=== PATIENT | male | born 1965 | race Two or more races ===

== ENCOUNTER 2016-11-27 11:46 | Inpatient (IN) | payer MEDICARE, MEDICAID ==
[~2016-11-27] VITALS: Ht 165.1 cm; Wt 73.7 kg
[~2016-11-27 11:46] MED LIST: BENZ1TAB10 PO; BUSP15 PO; GABA-531 PO; PANT40TA25 PO; RISP4 PO
[2016-11-27] MEDS ORDERED: DiphenhydrAMINE HCL 50 MG/ML VIAL IM ONE (12:15)
[2016-11-27] MEDS ORDERED: LORazepam 2 MG/ML VIAL IM ONE (12:15)
[2016-11-27] MEDS ORDERED: ZOLPIDEM TARTRATE 10 MG TABLET PO PRN (12:15)
[2016-11-27] MEDS ORDERED: INFLUENZA VIRUS VACCINE QVS 2016-17 (3YR+)/PF 60 MCG/0.5 ML SYRINGE IM ONE (12:45)
[2016-11-27] MEDS: BusPIRone HCL 15 MG TABLET PO SCH ×3 (13:00→20:29)
[2016-11-27] MEDS: GABAPENTIN 300 MG CAPSULE PO SCH ×3 (13:00→20:29)
[2016-11-27] MEDS: RisperiDONE 4 MG TABLET PO SCH (20:30)
[2016-11-28 07:03] VITALS: BP 119/63
[2016-11-28 08:13] VITALS: BP 102/59
[2016-11-28] MEDS: GABAPENTIN 300 MG CAPSULE PO SCH ×4 (10:13→21:03)
[2016-11-28] MEDS: PANTOPRAZOLE SODIUM 40 MG DR TABLET PO SCH (10:13)
[2016-11-28] MEDS: LORazepam 2 MG TABLET PO PRN (10:13)
[2016-11-28] MEDS: QUEtiapine FUMARATE 100 MG TABLET PO PRN (10:13)
[2016-11-28] MEDS: BusPIRone HCL 15 MG TABLET PO SCH ×4 (10:13→21:03)
[2016-11-28] MEDS: BENZTROPINE MESYLATE 1 MG TABLET PO SCH ×2 (10:13→17:08)
[2016-11-28 16:14] VITALS: BP 121/75
[2016-11-28] MEDS: RisperiDONE 4 MG TABLET PO SCH (21:03)
[2016-11-29 06:37] VITALS: BP 125/62
[2016-11-29 08:24] VITALS: BP 111/58
[2016-11-29] MEDS: GABAPENTIN 300 MG CAPSULE PO SCH ×4 (09:07→20:43)
[2016-11-29] MEDS: QUEtiapine FUMARATE 100 MG TABLET PO PRN (09:07)
[2016-11-29] MEDS: LORazepam 2 MG TABLET PO PRN (09:07)
[2016-11-29] MEDS: BusPIRone HCL 15 MG TABLET PO SCH ×4 (09:07→20:44)
[2016-11-29] MEDS: BENZTROPINE MESYLATE 1 MG TABLET PO SCH ×2 (09:07→17:43)
[2016-11-29] MEDS: PANTOPRAZOLE SODIUM 40 MG DR TABLET PO SCH (09:08)
[2016-11-29 16:00] VITALS: BP 118/72
[2016-11-29] MEDS: RisperiDONE 4 MG TABLET PO SCH (20:44)
[2016-11-30 06:41] VITALS: BP 110/69
[2016-11-30] MEDS: PANTOPRAZOLE SODIUM 40 MG DR TABLET PO SCH (10:01)
[2016-11-30] MEDS: BusPIRone HCL 15 MG TABLET PO SCH ×4 (10:01→21:02)
[2016-11-30] MEDS: LORazepam 2 MG TABLET PO PRN ×2 (10:01→16:04)
[2016-11-30] MEDS: BENZTROPINE MESYLATE 1 MG TABLET PO SCH ×2 (10:01→16:03)
[2016-11-30] MEDS: GABAPENTIN 300 MG CAPSULE PO SCH ×4 (10:01→21:02)
[2016-11-30 16:30] VITALS: BP 112/61
[2016-11-30] MEDS: RisperiDONE 4 MG TABLET PO SCH (21:02)
[2016-12-01 06:45] VITALS: BP 102/69
[2016-12-01 08:38] VITALS: BP 102/60
[2016-12-01] MEDS: LORazepam 2 MG TABLET PO PRN (10:08)
[2016-12-01] MEDS: BENZTROPINE MESYLATE 1 MG TABLET PO SCH ×2 (10:08→16:33)
[2016-12-01] MEDS: PANTOPRAZOLE SODIUM 40 MG DR TABLET PO SCH (10:08)
[2016-12-01] MEDS: BusPIRone HCL 15 MG TABLET PO SCH ×4 (10:08→20:54)
[2016-12-01] MEDS: GABAPENTIN 300 MG CAPSULE PO SCH ×4 (10:09→20:54)
[2016-12-01 16:21] VITALS: BP 116/73
[2016-12-01] MEDS: RisperiDONE 4 MG TABLET PO SCH (20:54)
[2016-12-02 06:48] VITALS: BP 105/68
[2016-12-02 08:14] VITALS: BP 99/63
[2016-12-02] MEDS ORDERED: PALIPERIDONE PALMITATE 234 MG/1.5 ML SYRINGE IM ONE (09:00)
[2016-12-02] MEDS: GABAPENTIN 300 MG CAPSULE PO SCH ×4 (09:54→20:38)
[2016-12-02] MEDS: TRIHEXYPHENIDYL HCL 5 MG TABLET PO SCH ×2 (09:54→16:36)
[2016-12-02] MEDS: LORazepam 2 MG TABLET PO PRN (09:54)
[2016-12-02] MEDS: BusPIRone HCL 15 MG TABLET PO SCH ×4 (09:55→20:38)
[2016-12-02] MEDS: PANTOPRAZOLE SODIUM 40 MG DR TABLET PO SCH (09:55)
[2016-12-02] MEDS: BENZTROPINE MESYLATE 1 MG TABLET PO SCH ×2 (09:55→16:37)
[2016-12-02 16:00] VITALS: BP 132/70
[2016-12-02] MEDS: RisperiDONE 4 MG TABLET PO SCH (20:38)
[2016-12-03 06:33] VITALS: BP 108/64
[2016-12-03 08:14] VITALS: BP 102/61
[2016-12-03] MEDS: BENZTROPINE MESYLATE 1 MG TABLET PO SCH ×2 (08:44→16:31)
[2016-12-03] MEDS: PANTOPRAZOLE SODIUM 40 MG DR TABLET PO SCH (08:44)
[2016-12-03] MEDS: GABAPENTIN 300 MG CAPSULE PO SCH ×4 (08:44→20:29)
[2016-12-03] MEDS: TRIHEXYPHENIDYL HCL 5 MG TABLET PO SCH ×2 (08:44→16:31)
[2016-12-03] MEDS: BusPIRone HCL 15 MG TABLET PO SCH ×4 (08:44→20:29)
[2016-12-03 16:29] VITALS: BP 111/71
[2016-12-03] MEDS: LORazepam 2 MG TABLET PO PRN (16:31)
[2016-12-03] MEDS: RisperiDONE 4 MG TABLET PO SCH (20:29)
[2016-12-04 06:43] VITALS: BP 104/67
[2016-12-04 08:45] VITALS: BP 101/62
[2016-12-04] MEDS: BusPIRone HCL 15 MG TABLET PO SCH ×4 (10:07→21:03)
[2016-12-04] MEDS: LORazepam 2 MG TABLET PO PRN ×2 (10:07→16:31)
[2016-12-04] MEDS: BENZTROPINE MESYLATE 1 MG TABLET PO SCH ×2 (10:07→16:31)
[2016-12-04] MEDS: GABAPENTIN 300 MG CAPSULE PO SCH ×4 (10:07→21:03)
[2016-12-04] MEDS: TRIHEXYPHENIDYL HCL 5 MG TABLET PO SCH ×2 (10:08→16:31)
[2016-12-04] MEDS: PANTOPRAZOLE SODIUM 40 MG DR TABLET PO SCH (10:08)
[2016-12-04 16:14] VITALS: BP 120/64
[2016-12-04] MEDS: RisperiDONE 4 MG TABLET PO SCH (21:03)
[2016-12-05 06:36] VITALS: BP 101/60
[2016-12-05 08:14] VITALS: BP 99/56
[2016-12-05] MEDS: GABAPENTIN 300 MG CAPSULE PO SCH ×4 (09:37→20:55)
[2016-12-05] MEDS: PANTOPRAZOLE SODIUM 40 MG DR TABLET PO SCH (09:37)
[2016-12-05] MEDS: TRIHEXYPHENIDYL HCL 5 MG TABLET PO SCH ×2 (09:37→17:05)
[2016-12-05] MEDS: BusPIRone HCL 15 MG TABLET PO SCH ×4 (09:37→20:55)
[2016-12-05] MEDS: BENZTROPINE MESYLATE 1 MG TABLET PO SCH ×2 (09:37→17:05)
[2016-12-05] MEDS: LORazepam 2 MG TABLET PO PRN ×2 (09:38→17:05)
[2016-12-05 16:15] VITALS: BP 116/63
[2016-12-05] MEDS: RisperiDONE 4 MG TABLET PO SCH (20:55)
[2016-12-06] MEDS: LORazepam 2 MG TABLET PO PRN ×3 (04:26→16:51)
[2016-12-06 04:29] VITALS: BP 107/61
[2016-12-06 08:14] VITALS: BP 108/58
[2016-12-06] MEDS ORDERED: PALIPERIDONE PALMITATE 156 MG/ML SYRINGE IM SCH (09:00)
[2016-12-06] MEDS ORDERED: PALIPERIDONE PALMITATE 156 MG/ML SYRINGE IM ONE (09:00)
[2016-12-06] MEDS: PANTOPRAZOLE SODIUM 40 MG DR TABLET PO SCH (10:03)
[2016-12-06] MEDS: TRIHEXYPHENIDYL HCL 5 MG TABLET PO SCH ×2 (10:04→16:51)
[2016-12-06] MEDS: BusPIRone HCL 15 MG TABLET PO SCH ×4 (10:04→20:45)
[2016-12-06] MEDS: BENZTROPINE MESYLATE 1 MG TABLET PO SCH ×2 (10:04→16:51)
[2016-12-06] MEDS: GABAPENTIN 300 MG CAPSULE PO SCH ×4 (10:04→20:45)
[2016-12-06 16:38] VITALS: BP 118/68
[2016-12-07] MEDS: LORazepam 2 MG TABLET PO PRN (01:16)
[2016-12-07 04:50] VITALS: BP 131/78
[2016-12-07 08:14] VITALS: BP 117/69
[2016-12-07] MEDS ORDERED: PALI156D IM (09:03)
[2016-12-07] MEDS ORDERED: TRIH5TAB2 PO (09:03)
[2016-12-07] MEDS: BENZTROPINE MESYLATE 1 MG TABLET PO SCH (09:05)
[2016-12-07] MEDS: BusPIRone HCL 15 MG TABLET PO SCH (09:06)
[2016-12-07] MEDS: TRIHEXYPHENIDYL HCL 5 MG TABLET PO SCH (09:06)
[2016-12-07] MEDS: PANTOPRAZOLE SODIUM 40 MG DR TABLET PO SCH (09:06)
[2016-12-07] MEDS: GABAPENTIN 300 MG CAPSULE PO SCH (09:07)
== END 2016-12-07 10:00 | disposition home or self-care (01) | DRG 885 ==
LOC: B3A 12:09
PROVIDERS: ADMIT Psychiatry & Neurology Psychiatry; ATTEND Psychiatry & Neurology Psychiatry
DX: F25.0 Schizoaffective disorder, bipolar type (principal); F15.20 Other stimulant dependence, uncomplicated; R45.851 Suicidal ideations; F12.10 Cannabis abuse, uncomplicated; F10.10 Alcohol abuse, uncomplicated; F17.210 Nicotine dependence, cigarettes, uncomplicated; K21.9 Gastro-esophageal reflux disease without esophagitis; R45.850 Homicidal ideations; G62.9 Polyneuropathy, unspecified; Z91.14 Patient's other noncompliance with medication regimen; Z98.890 Other specified postprocedural states; Z28.21 Immunization not carried out because of patient refusal

== ENCOUNTER 2019-08-17 11:29 | Inpatient (IN) | payer MEDICARE, MEDICAID ==
[~2019-08-17] VITALS: Ht 165.1 cm; Wt 72.6 kg
[~2019-08-17 11:29] MED LIST changes: +PALI156D IM; -RISP4 PO; +TRIH5TAB2 PO
[2019-08-17 12:49] LABS: BASOPHILS % (AUTO) 0.2 % (0.0-2.0); EOSINOPHILS % (AUTO) 0.3 % (1.0-6.0); HEMATOCRIT 36.5 % (41-53); HEMOGLOBIN 12.6 g/dL (13.5-17.5); LYMPHOCYTES # (AUTO) 1.4 K/uL (1.0-4.8); LYMPHOCYTES % (AUTO) 17.2 % (22.0-44.0); MEAN CORPUSCULAR HEMOGLOBIN 34.1 pg (26.0-34.0); MEAN CORPUSCULAR HGB CONC 34.4 G/dL (31.0-37.0); MEAN CORPUSCULAR VOLUME 99 fL (80-100); NEUTROPHILS # (AUTO) 5.7 K/uL (1.8-7.7); NEUTROPHILS % (AUTO) 70.3 % (40.0-70.0); PLATELET COUNT (AUTO) 256 K/uL (150-450); RED BLOOD CELL COUNT(AUTO) 3.68 MIL/uL (4.50-5.90); RED CELL DISTRIBUTION WIDTH 13.9 % (11.5-14.5)
[2019-08-17 12:58] LABS: ANION GAP 12 mmol/L (8-16); CALCIUM, TOTAL 9.4 mg/dL (8.8-10.5); CARBON DIOXIDE 27 mmol/L (22-29); CHLORIDE 112 mmol/L (98-107); CREATININE 1.17 mg/dL (0.60-1.30); GLOMERULAR FILTR. RATE CALC > 60 mL/min (>60); GLUCOSE,RANDOM 87 mg/dL (70-110); POTASSIUM 4.5 mmol/L (3.5-5.1); SODIUM SERUM 151 mmol/L (136-145); UREA NITROGEN, BLOOD 18 mg/dL (7-18)
[2019-08-17 13:04] LABS: ALANINE AMINOTRANSFERASE 51 U/L (12-78); ALBUMIN 3.5 g/dL (3.4-5.0); ALKALINE PHOSPHATASE 76 U/L (46-116); ASPARTATE AMINOTRANSFERASE 40 U/L (15-37); TOTAL PROTEIN, SERUM 6.8 g/dL (6.4-8.2)
[2019-08-17] MEDS ORDERED: PALIPERIDONE 3 MG ER TABLET PO PRN (14:45)
[2019-08-17] MEDS ORDERED: LORazepam 2 MG TABLET PO PRN (14:45)
[2019-08-17] MEDS ORDERED: PROMETHAZINE HCL 25 MG TABLET PO PRN (14:45)
[2019-08-17] MEDS ORDERED: MAGNESIUM HYDROXIDE SUSPENSION 30 ML UDCUP PO PRN (14:45)
[2019-08-17] MEDS ORDERED: ZOLPIDEM TARTRATE 10 MG TABLET PO PRN (14:45)
[2019-08-17] MEDS ORDERED: MAG HYDROX/AL HYDROX/SIMETH ES 30 ML SUSPENSION UDCUP PO PRN (14:45)
[2019-08-17] MEDS ORDERED: GuaiFENesin/D-METHORPHAN [SUGAR-FREE] 200-20MG/10 ML SYRUP UDCUP PO PRN (14:45)
[2019-08-17] MEDS ORDERED: LOPERAMIDE HCL 2 MG CAPSULE PO PRN (14:45)
[2019-08-17] MEDS ORDERED: PALIPERIDONE PALMITATE 234 MG/1.5 ML SYRINGE IM ONE (14:45)
[2019-08-17] MEDS ORDERED: TUBERCULIN, PURIFIED PROTEIN DERIVATIVE 5 TU/0.1 ML SYRINGE ID ONE (14:45)
[2019-08-17] MEDS ORDERED: HydrOXYzine PAMOATE 50 MG CAPSULE PO PRN (14:45)
[2019-08-17] MEDS ORDERED: ACETAMINOPHEN 325 MG TABLET PO PRN (14:45)
[2019-08-17 15:14] LABS: AMPHET/METH SCREEN,URINE POSITIVE (NEGATIVE); BARBITURATE SCREEN, URINE NEGATIVE (NEGATIVE); BENZODIAZEPINES SCREEN,URINE NEGATIVE (NEGATIVE); CANNABINOID SCREEN,URINE POSITIVE (NEGATIVE); COCAINE SCREEN,URINE NEGATIVE (NEGATIVE); METHADONE SCREEN, URINE NEGATIVE (NEGATIVE); OPIATE SCREEN,URINE NEGATIVE (NEGATIVE); PHENCYCLIDINE SCREEN,URINE NEGATIVE (NEGATIVE)
[2019-08-17] MEDS: THIAMINE HCL 100 MG TABLET PO SCH (20:34)
[2019-08-17 21:00] VITALS: BP 133/77
[2019-08-17] MEDS ORDERED: PALIPERIDONE 3 MG ER TABLET PO SCH (21:00)
[2019-08-18] MEDS: NALTREXONE HCL 50 MG TABLET PO SCH (08:54)
[2019-08-18] MEDS: THIAMINE HCL 100 MG TABLET PO SCH ×2 (08:54→16:44)
[2019-08-18] MEDS: MULTIVITAMINS WITH MINERALS, THERAPEUTIC TABLET PO SCH (08:54)
[2019-08-18] MEDS: FOLIC ACID 1 MG TABLET PO SCH (08:54)
[2019-08-18 10:07] VITALS: BP 113/70
[2019-08-18 17:17] VITALS: BP 135/69
[2019-08-19] MEDS: FOLIC ACID 1 MG TABLET PO SCH (08:09)
[2019-08-19] MEDS: MULTIVITAMINS WITH MINERALS, THERAPEUTIC TABLET PO SCH (08:10)
[2019-08-19] MEDS: NALTREXONE HCL 50 MG TABLET PO SCH (08:10)
[2019-08-19] MEDS: THIAMINE HCL 100 MG TABLET PO SCH ×2 (08:10→17:13)
[2019-08-19 09:09] VITALS: BP 115/67
[2019-08-19 16:00] VITALS: BP 107/62
[2019-08-20] MEDS: NALTREXONE HCL 50 MG TABLET PO SCH (09:43)
[2019-08-20] MEDS: FOLIC ACID 1 MG TABLET PO SCH (09:43)
[2019-08-20] MEDS: THIAMINE HCL 100 MG TABLET PO SCH ×2 (09:43→16:30)
[2019-08-20] MEDS: MULTIVITAMINS WITH MINERALS, THERAPEUTIC TABLET PO SCH (09:43)
[2019-08-20 09:59] VITALS: BP 102/73
[2019-08-20] MEDS ORDERED: NALT50TA PO (17:02)
[2019-08-20] MEDS ORDERED: PALI117D IM (17:02)
[2019-08-20 21:24] VITALS: BP 101/69
[2019-08-21 00:54] VITALS: BP 120/85
[2019-08-21] MEDS: MULTIVITAMINS WITH MINERALS, THERAPEUTIC TABLET PO SCH (08:00)
[2019-08-21] MEDS: NALTREXONE HCL 50 MG TABLET PO SCH (08:00)
[2019-08-21] MEDS: FOLIC ACID 1 MG TABLET PO SCH (08:00)
[2019-08-21] MEDS: THIAMINE HCL 100 MG TABLET PO SCH (08:00)
[2019-08-21] MEDS ORDERED: PALIPERIDONE PALMITATE 156 MG/ML SYRINGE IM ONE (09:00)
[2019-08-21 10:06] VITALS: BP 131/67
== END 2019-08-21 13:45 | disposition home or self-care (01) | DRG 885 ==
LOC: EMS 11:31 → 3EX 16:51
PROVIDERS: ADMIT Psychiatry & Neurology Psychiatry; ATTEND Psychiatry & Neurology Psychiatry
DX: F20.0 Paranoid schizophrenia (principal); F15.10 Other stimulant abuse, uncomplicated; F17.210 Nicotine dependence, cigarettes, uncomplicated; F43.10 Post-traumatic stress disorder, unspecified; K21.9 Gastro-esophageal reflux disease without esophagitis; F12.90 Cannabis use, unspecified, uncomplicated; Z91.19 Patient's noncompliance with other medical treatment and regimen; Z91.14 Patient's other noncompliance with medication regimen; Z79.899 Other long term (current) drug therapy
CPT/HCPCS: 93005; 99406; G0378; G0480

== ENCOUNTER 2022-06-08 12:27 | Emergency (ER) | payer MEDICARE, MEDICAID ==
[~2022-06-08] VITALS: Ht 165.1 cm; Wt 72.7 kg
[~2022-06-08 12:27] MED LIST changes: -BENZ1TAB10 PO; -BUSP15 PO; -GABA-531 PO; +NALT50TA PO; +OLAN5TAB30 PO; -PALI156D IM; -PANT40TA25 PO; -TRIH5TAB2 PO
[2022-06-08] MEDS ORDERED: DiphenhydrAMINE HCL 50 MG/ML VIAL IM ONE (13:30)
[2022-06-08] MEDS ORDERED: LORazepam 2 MG/ML VIAL IM ONE (13:30)
[2022-06-08] MEDS ORDERED: HALOPERIDOL LACTATE 5 MG/ML VIAL IM ONE (13:30)
[2022-06-08 14:40] LABS: COVID AG,FIA SOURCE NASAL SWAB
[2022-06-08 16:30] VITALS: BP 121/90
== END 2022-06-08 17:36 | disposition home or self-care (01) ==
LOC: EMS 12:29
DX: F15.10 Other stimulant abuse, uncomplicated (principal); F12.90 Cannabis use, unspecified, uncomplicated; F17.210 Nicotine dependence, cigarettes, uncomplicated; F43.10 Post-traumatic stress disorder, unspecified; Z20.822 Contact with and (suspected) exposure to COVID-19
CPT/HCPCS: 99285; 87426; 96372; J1200; J1630; J2060

== ENCOUNTER 2022-07-26 12:32 | Emergency (ER) | payer MEDICARE, MEDICAID ==
[~2022-07-26] VITALS: Ht 165.1 cm; Wt 59.1 kg
[2022-07-26] MEDS ORDERED: LORazepam 2 MG/ML VIAL IM ONE (15:30)
[2022-07-26] MEDS ORDERED: KETOROLAC TROMETHAMINE 10 MG TABLET PO ONE (15:30)
[2022-07-26 16:40] VITALS: BP 122/78
[2022-07-26] MEDS ORDERED: BACITRACIN 28 GM OINTMENT TP ONE (16:45)
[2022-07-26] MEDS ORDERED: MUPI15CR12 TP (17:20)
== END 2022-07-26 17:35 | disposition home or self-care (01) ==
LOC: EMS 12:36
DX: S62.611A Displaced fracture of proximal phalanx of left index finger, initial encounter for closed fracture (principal); S62.621A Displaced fracture of middle phalanx of left index finger, initial encounter for closed fracture; S22.32XA Fracture of one rib, left side, initial encounter for closed fracture; S00.01XA Abrasion of scalp, initial encounter; F20.9 Schizophrenia, unspecified; F15.10 Other stimulant abuse, uncomplicated; F43.10 Post-traumatic stress disorder, unspecified; F17.210 Nicotine dependence, cigarettes, uncomplicated; X58.XXXA Exposure to other specified factors, initial encounter; Y93.89 Activity, other specified; Y92.89 Other specified places as the place of occurrence of the external cause; Y99.8 Other external cause status
CPT/HCPCS: 99284; 71100; 73130; 29130; 96372; J2060

== ENCOUNTER 2022-09-15 10:42 | Inpatient (IN) | payer MEDICARE, MEDICAID ==
[~2022-09-15] VITALS: Ht 165.1 cm; Wt 64.9 kg
[~2022-09-15 10:42] MED LIST changes: +MUPI15CR12 TP
[2022-09-15] MEDS ORDERED: HALOPERIDOL LACTATE 5 MG/ML VIAL ONE (11:08)
[2022-09-15] MEDS ORDERED: LORazepam 2 MG/ML VIAL ONE (11:08)
[2022-09-15] MEDS ORDERED: DiphenhydrAMINE HCL 50 MG/ML VIAL ONE (11:08)
[2022-09-15] MEDS ORDERED: LORazepam 2 MG/ML VIAL IM ONE (11:15)
[2022-09-15] MEDS ORDERED: HALOPERIDOL LACTATE 5 MG/ML VIAL IM ONE (11:15)
[2022-09-15] MEDS ORDERED: DiphenhydrAMINE HCL 50 MG/ML VIAL IM ONE (11:15)
[2022-09-15 11:29] LABS: COVID AG,FIA SOURCE NASOPHARYNGEAL
[2022-09-15 12:06] LABS: BASOPHILS % (AUTO) 0.5 % (0.0-2.0); EOSINOPHILS % (AUTO) 1.4 % (1.0-6.0); HEMATOCRIT 38.7 % (41-53); HEMOGLOBIN 13.1 g/dL (13.5-17.5); LYMPHOCYTES % (AUTO) 18.5 % (22.0-44.0); MEAN CORPUSCULAR HEMOGLOBIN 33.4 pg (26.0-34.0); MEAN CORPUSCULAR HGB CONC 33.9 G/dL (31.0-37.0); MEAN CORPUSCULAR VOLUME 99 fL (80-100); MONOCYTES # (AUTO) 0.9 K/uL (0.1-1.0); NEUTROPHILS # (AUTO) 3.3 K/uL (1.8-7.7); NEUTROPHILS % (AUTO) 62.6 % (40.0-70.0); PLATELET COUNT (AUTO) 192 K/uL (150-450); RED BLOOD CELL COUNT(AUTO) 3.92 MIL/uL (4.50-5.90); RED CELL DISTRIBUTION WIDTH 13.7 % (11.5-14.5)
[2022-09-15 12:18] LABS: ANION GAP 5 mmol/L (8-16); CALCIUM, TOTAL 9.3 mg/dL (8.8-10.5); CARBON DIOXIDE 27 mmol/L (22-29); CHLORIDE 106 mmol/L (98-107); CREATININE 0.86 mg/dL (0.60-1.30); GLUCOSE,RANDOM 82 mg/dL (70-110); POTASSIUM 3.9 mmol/L (3.5-5.1); SODIUM SERUM 138 mmol/L (136-145); UREA NITROGEN, BLOOD 18 mg/dL (7-18)
[2022-09-15 12:19] LABS: GLOMERULAR FILTR. RATE CALC > 60 mL/min (>60)
[2022-09-15 12:32] LABS: ALANINE AMINOTRANSFERASE 27 U/L (12-78); ALBUMIN 3.2 g/dL (3.4-5.0); ASPARTATE AMINOTRANSFERASE 22 U/L (15-37); BILIRUBIN,TOTAL 0.4 mg/dL (0.1-1.0); THYROID STIMULATING HORMONE 0.66 uIU/mL (0.36-3.74); TOTAL PROTEIN, SERUM 6.7 g/dL (6.4-8.2)
[2022-09-15 12:38] LABS: LITHIUM < 0.20 mmol/L (0.60-1.20)
[2022-09-15 12:43] LABS: ALKALINE PHOSPHATASE 81 U/L (46-116)
[2022-09-15 17:39] LABS: AMPHET/METH SCREEN,URINE POSITIVE (NEGATIVE); BARBITURATE SCREEN, URINE NEGATIVE (NEGATIVE); BENZODIAZEPINES SCREEN,URINE NEGATIVE (NEGATIVE); CANNABINOID SCREEN,URINE POSITIVE (NEGATIVE); COCAINE SCREEN,URINE NEGATIVE (NEGATIVE); METHADONE SCREEN, URINE NEGATIVE (NEGATIVE); OPIATE SCREEN,URINE NEGATIVE (NEGATIVE)
[2022-09-15 17:40] LABS: PHENCYCLIDINE SCREEN,URINE NEGATIVE (NEGATIVE)
[2022-09-15] MEDS ORDERED: ZOLPIDEM TARTRATE 10 MG TABLET PO PRN (18:15)
[2022-09-15] MEDS ORDERED: HALOPERIDOL 5 MG TABLET PO PRN (18:15)
[2022-09-16 22:38] VITALS: BP 122/60
[2022-09-17] MEDS ORDERED: INFLUENZA VIRUS VACCINE QVS 2022-23 (6MO+)/PF 60 MCG/0.5 ML SYRINGE IM. ONE (01:00)
[2022-09-17 08:25] VITALS: BP 121/73
[2022-09-17] MEDS ORDERED: LOPERAMIDE HCL 2 MG CAPSULE PO PRN (15:30)
[2022-09-17] MEDS ORDERED: PETROLATUM,WHITE 28 GM JELLY TP PRN (15:30)
[2022-09-17] MEDS ORDERED: ONDANSETRON HCL 4 MG TABLET PO PRN (15:30)
[2022-09-17] MEDS ORDERED: MAGNESIUM HYDROXIDE SUSPENSION 30 ML UDCUP PO PRN (15:30)
[2022-09-17] MEDS ORDERED: DOCUSATE SODIUM 100 MG CAPSULE PO PRN (15:30)
[2022-09-17] MEDS ORDERED: CloNIDine HCL 0.1 MG TABLET PO PRN (15:30)
[2022-09-17] MEDS ORDERED: ALBUTEROL SULFATE HFA 90 MCG/PUFF 8 GM INHALER IH PRN (15:30)
[2022-09-17] MEDS ORDERED: GuaiFENesin/D-METHORPHAN [SUGAR-FREE] 200-20MG/10 ML SYRUP UDCUP PO PRN (15:30)
[2022-09-17] MEDS ORDERED: ACETAMINOPHEN 325 MG TABLET PO PRN (15:30)
[2022-09-17] MEDS ORDERED: NICOTINE 14 MG/24 HOUR PATCH TD PRN (15:30)
[2022-09-17] MEDS ORDERED: MAG HYDROX/AL HYDROX/SIMETH ES 30 ML SUSPENSION UDCUP PO PRN (15:30)
[2022-09-17 20:16] VITALS: BP 119/73
[2022-09-18] MEDS: OLANZapine 10 MG TABLET PO SCH ×2 (14:30→20:56)
[2022-09-18 20:26] VITALS: BP 114/68
[2022-09-19 04:45] VITALS: BP 121/70
[2022-09-19] MEDS: IBUPROFEN 400 MG TABLET PO PRN (04:55)
[2022-09-19 08:16] VITALS: BP 100/60
[2022-09-19] MEDS: OLANZapine 10 MG TABLET PO SCH ×2 (09:00→20:52)
[2022-09-19 20:39] VITALS: BP 101/69
[2022-09-20] MEDS: OLANZapine 10 MG TABLET PO SCH ×2 (09:00→20:36)
[2022-09-20 09:23] VITALS: BP 128/71
[2022-09-20 20:00] VITALS: BP 108/62
[2022-09-21] MEDS: IBUPROFEN 400 MG TABLET PO PRN ×2 (01:05→19:27)
[2022-09-21] MEDS: LORazepam 2 MG TABLET PO PRN ×2 (01:05→19:27)
[2022-09-21 01:06] VITALS: BP 105/69
[2022-09-21 08:28] VITALS: BP 103/66
[2022-09-21] MEDS: OLANZapine 10 MG TABLET PO SCH ×2 (09:00→20:33)
[2022-09-21 19:20] VITALS: BP 126/66
[2022-09-21 20:00] VITALS: BP 126/64
[2022-09-22 08:18] VITALS: BP 117/73
[2022-09-22] MEDS: LORazepam 2 MG TABLET PO PRN ×2 (08:45→16:33)
[2022-09-22] MEDS: OLANZapine 10 MG TABLET PO SCH ×2 (08:54→20:29)
[2022-09-22] MEDS: IBUPROFEN 400 MG TABLET PO PRN (16:33)
[2022-09-23 08:36] VITALS: BP 112/73
[2022-09-23] MEDS: OLANZapine 10 MG TABLET PO SCH ×2 (08:45→20:51)
[2022-09-23] MEDS: LORazepam 2 MG TABLET PO PRN ×2 (08:46→16:24)
[2022-09-23] MEDS: IBUPROFEN 400 MG TABLET PO PRN (16:24)
[2022-09-23] MEDS ORDERED: TraMADol HCL 50 MG TABLET PO PRN (18:00)
[2022-09-23 21:04] VITALS: BP 98/61
[2022-09-24 08:25] LABS: GLUCOMETER DEV NAME(LOC) POC.BV
[2022-09-24 08:43] VITALS: BP 106/66
[2022-09-24] MEDS: OLANZapine 10 MG TABLET PO SCH (09:00)
[2022-09-24] MEDS ORDERED: OLAN10 PO ×2 (10:51)
== END 2022-09-24 15:45 | disposition home or self-care (01) | DRG 885 ==
LOC: EMS 11:12 → B2X 09-16 17:04 → B3A 09-16 21:35
PROVIDERS: ADMIT Psychiatry & Neurology Child & Adolescent Psychiatry; ATTEND Psychiatry & Neurology Child & Adolescent Psychiatry
DX: F25.1 Schizoaffective disorder, depressive type (principal); D64.9 Anemia, unspecified; F10.10 Alcohol abuse, uncomplicated; F17.200 Nicotine dependence, unspecified, uncomplicated; F43.10 Post-traumatic stress disorder, unspecified; I10 Essential (primary) hypertension; F41.9 Anxiety disorder, unspecified; F15.10 Other stimulant abuse, uncomplicated; K21.9 Gastro-esophageal reflux disease without esophagitis; F12.10 Cannabis abuse, uncomplicated; Z20.822 Contact with and (suspected) exposure to COVID-19; Z78.1 Physical restraint status; Z91.14 Patient's other noncompliance with medication regimen
CPT/HCPCS: 80053; 80178; 84443; 85025; 99291; G0480; J1200; J1630; J2060